=== PATIENT | female | born 1995 | race Caucasian/White ===

== ENCOUNTER 2017-09-30 20:38 | Emergency (ER) | payer OTHER ==
[~2017-09-30] VITALS: Ht 175.3 cm; Wt 56.7 kg
[2017-09-30 20:41] VITALS: BP_SYST 153
[2017-09-30 21:30] VITALS: BP_SYST 148
== END 2017-09-30 21:30 ==
LOC: SED 20:38
DX: M54.6 Pain in thoracic spine (principal); F17.210 Nicotine dependence, cigarettes, uncomplicated; Z71.6 Tobacco abuse counseling; Z88.0 Allergy status to penicillin; Z88.1 Allergy status to other antibiotic agents; V43.52XA Car driver injured in collision with other type car in traffic accident, initial encounter; Y93.89 Activity, other specified; Y92.488 Other paved roadways as the place of occurrence of the external cause; Y99.8 Other external cause status
CPT/HCPCS: 99283